=== PATIENT | female | born 1970 | race Caucasian/White ===

== ENCOUNTER 2018-05-10 18:44 | Emergency (ER) | payer SELFPAY | END 2018-05-10 23:00 | disposition left against medical advice (07) | LOC: DL.ED 18:44 | DX: Z53.21 Procedure and treatment not carried out due to patient leaving prior to being seen by health care provider (principal) ==

== ENCOUNTER 2018-08-25 07:45 | Emergency (ER) | payer BC ==
--- NOTE | 2018-08-25 09:28 | CT ---
Clinical history: 47-year-old 239 pound female complaining of "numbness". Scan technique: Volume acquisition of data emergency unenhanced CT scan of the head and brain obtained while the patient was lying supine on the Siemens multi slice scanner [place], [place]. All data archived in the PACS system for storage, reformatting axial/sagittal/coronal planes and study. No previous exams immediately available for comparison. Interpretation: 1. Symmetric atrophy convexity of both cerebral hemispheres out of proportion to patient's age. Underlying mirror-image normal ventricular system. No hydrocephalus. Physiologic midline pineal and symmetric choroid plexus calcifications. 2. No supratentorial or posterior fossa mass lesion. 3. Cerebellum and brainstem unremarkable. 4. Uniformly thick bony calvarium and symmetric clear pneumatization of the paranasal sinuses (dense sclerosis of the mastoids). 5. No focal area of ischemia, territorial infarct, or encephalomalacia. 6. No sign of acute intracerebral/intraventricular/subarachnoid bleed. No extracerebral/intracranial epidural or subdural hematoma. CONCLUSION: Atrophy. Chronic mastoiditis. No intracranial mass, hydrocephalus, infarct or bleed.
[2018-08-25 10:08] LABS: ANION GAP 14.8; CHLORIDE,CL 104 mmol/L (101-111); SODIUM,NA 136 mmol/L (135-145)
[2018-08-25] MEDS ORDERED: HYDROmorphone 1 MG/ML Syringe IVPUSH ONE (10:57)
[2018-08-25] MEDS: Sodium Chloride 0.9% 10 ML Syringe FLUSH PRN ×2 (11:20→13:17)
[2018-08-25] MEDS ORDERED: LORazepam 2 MG/ML Syringe IVPUSH ONE ×2 (13:08→13:12)
[2018-08-25] MEDS ORDERED: methylPREDNISolone Sod Succ 1,000 MG in Sodium Chloride 0.9% 100 ML IV ONE (14:08)
--- NOTE | 2018-08-25 14:22 | EDM.PDOC ---
ED HPI GENERAL MEDICAL PROBLEM - General Chief Complaint: Neuro Symptoms/Deficits Stated Complaint: SIDE OF RT LEG NUMB Time Seen by Provider: 08/25/18 09:33 Source of Information: Reports: Patient History Limitations: Reports: No Limitations - History of Present Illness INITIAL COMMENTS - FREE TEXT/NARRATIVE: PATIENT COMES EMERGENCY dEPARTMENT TODAY WITH COMPLAINTS OF NUMBNESS TINGLING AND BURNING TO HER RIGHT LOWER EXTREMITY. For about the last week the patient has had a burning tingling sensation to her right foot. It is slowly gotten worse over the past week and her leg is moving as it typically does. This morning when she awoke from sleep she had severeburningtingling pain to her right arm and her right leg. Her right leg is much weaker than it has been. She has no headache. No visual disturbances. No chest pain or shortness of breath or difficulty breathing. No fever no chills. No nausea no vomiting. No recent falls or trauma. Lower Leg Pain Score (Numeric/FACES): 9 - Related Data Allergies Allergy/AdvReac Type Severity Reaction Status Date / Time morphine Allergy Itching Verified 08/25/18 11:18 Home Meds: Home Meds Naproxen 500 mg PO ASDIRECTED PRN 08/25/18 [History] Past Medical History Cardiovascular History: Reports: None - Past Surgical History GI Surgical History: Reports: Cholecystectomy Female Surgical History: Reports: Cervical Conization, Tubal Ligation, Other (See Below) Other Female Surgeries/Procedures: Overy removed. Social & Family History - Family History Family Medical History: Noncontributory - Tobacco Use Smoking Status *Q: Never Smoker Second Hand Smoke Exposure: No - Caffeine Use Caffeine Use: Reports: Coffee - Recreational Drug Use Recreational Drug Use: No ED ROS GENERAL - Review of Systems Review Of Systems: ROS reveals no pertinent complaints other than HPI. ED EXAM, NEURO - Physical Exam Exam: See Below Text/Narrative:: she is very tearful and crying. She is able to ambulate although with a noted limp to her right lower extremity. She is constantly moving and rubbing her right lower extremity. General Appearance: Anxious Eye Exam: Bilateral Eye: EOMI, Normal Inspection, PERRL Ears: Normal External Exam, Normal Canal, Normal TMs Nose: Normal Inspection, Normal Mucosa, No Blood Throat/Mouth: Normal Inspection, Normal Lips, Normal Teeth, Normal Gums, Normal Oropharynx, Normal Voice, No Airway Compromise Head Exam: Atraumatic, Normocephalic Neck: Normal Inspection, Supple, Non-Tender Respiratory/Chest: No Respiratory Distress, Lungs Clear, Normal Breath Sounds, No Accessory Muscle Use, Chest Non-Tender Cardiovascular: Normal Peripheral Pulses, Regular Rate, Rhythm GI/Abdominal: Normal Bowel Sounds, Soft, Non-Tender Neurological: Alert, CN II-XII Intact, Normal Reflexes, Oriented x 3, Difficulty Walking, Other (she moves her upper extremities strong and equal to command. There is no pronator drift. No ataxia. She moves her left lower extremity strong with no drift. No ataxia. Normal sensation. Her right lower extremity is somewhat hypersensitive to palpation. She is able to lift it up off the bed but it slowlydrifts down and landed back on the bed. She has some ataxia with the right lower extremity as well.). No: Normal Gait (her right leg does not work as well when she ambulates.) DTR: 2+: Patella (R), Patella (L), Achilles (R), Achilles (L) Back Exam: Normal Inspection, Full Range of Motion Extremities: Normal Range of Motion, Non-Tender, No Pedal Edema, Normal Capillary Refill. No: Normal Inspection (normal other than noted changes to the right lower extremity as per the neuro section. ) Psychiatric: Anxious Skin Exam: Warm, Dry, Intact, Normal Color, No Rash EKG INTERPRETATION EKG Date: 08/25/18 Time: 10:00 Rhythm: NSR [place]: Normal P-Wave: Present QRS: Normal ST-T: Normal QT: Normal Course - Vital Signs Last Recorded V/S: Last Vital Signs Temp 37.1 C 08/25/18 13:01 Pulse 76 08/25/18 13:01 Resp 16 08/25/18 13:01 BP 152/75 H 08/25/18 13:01 Pulse Ox 99 08/25/18 13:01 - Orders/Labs/Meds Labs: Laboratory Tests 08/25/18 08/25/18 08/25/18 Range/Units 09:05 09:42 09:42 WBC 4.0 L (5.0-10.0) 10^3/uL RBC 4.38 (4.2-5.4) 10^6/uL Hgb 13.2 (12.0-16.0) g/dL Hct 39.8 (37.0-47.0) % MCV 90.9 (80-100) fL MCH 30.1 (27.0-34.0) pg MCHC 33.2 (33.0-35.0) g/dL Plt Count 341 (150-450) 10^3/uL Neut % (Auto) 61.3 (42.2-75.2) % Lymph % (Auto) 27.6 (20.5-50.1) % [place] % (Auto) 9.7 H (2-8) % Eos % (Auto) 1.2 (1.0-3.0) % Baso % (Auto) 0.2 (0.0-1.0) % Sodium 136 (135-145) mmol/L Potassium 3.8 (3.6-5.0) mmol/L Chloride 104 (101-111) mmol/L Carbon Dioxide 21.0 (21.0-31.0) mmol/L Anion Gap 14.8 BUN 15 (7-18) mg/dL Creatinine 0.7 (0.6-1.3) mg/dL Est Cr Clr Drug Dosing 99.15 mL/min Estimated GFR (MDRD) > 60 BUN/Creatinine Ratio 21.42 Glucose 108 H (74-105) mg/dL POC Glucose 99 (70-105) mg/dl Lactic Acid (0.5-2.2) mmol/L Calcium 8.4 (8.4-10.2) mg/dl Total Bilirubin 0.6 (0.2-1.0) mg/dL AST 16 (10-42) IU/L ALT 13 (10-60) IU/L Alkaline Phosphatase 68 (42-121) IU/L Troponin I < 0.02 (0.00-0.02) ng/ml Total Protein 7.0 (6.7-8.2) g/dl Albumin 3.7 (3.2-5.5) g/dl Globulin 3.3 Albumin/Globulin Ratio 1.12 08/25/18 Range/Units 09:42 WBC (5.0-10.0) 10^3/uL RBC (4.2-5.4) 10^6/uL Hgb (12.0-16.0) g/dL Hct (37.0-47.0) % MCV (80-100) fL MCH (27.0-34.0) pg MCHC (33.0-35.0) g/dL Plt Count (150-450) 10^3/uL Neut % (Auto) (42.2-75.2) % Lymph % (Auto) (20.5-50.1) % [place] % (Auto) (2-8) % Eos % (Auto) (1.0-3.0) % Baso % (Auto) (0.0-1.0) % Sodium (135-145) mmol/L Potassium (3.6-5.0) mmol/L Chloride (101-111) mmol/L Carbon Dioxide (21.0-31.0) mmol/L Anion Gap BUN (7-18) mg/dL Creatinine (0.6-1.3) mg/dL Est Cr Clr Drug Dosing mL/min Estimated GFR (MDRD) BUN/Creatinine Ratio Glucose (74-105) mg/dL POC Glucose (70-105) mg/dl Lactic Acid 0.7 (0.5-2.2) mmol/L Calcium (8.4-10.2) mg/dl Total Bilirubin (0.2-1.0) mg/dL AST (10-42) IU/L ALT (10-60) IU/L Alkaline Phosphatase (42-121) IU/L Troponin I (0.00-0.02) ng/ml Total Protein (6.7-8.2) g/dl Albumin (3.2-5.5) g/dl Globulin Albumin/Globulin Ratio Meds: Medications Discontinued Medications Generic Name Dose Route Start Last Admin Trade Name Marcio PRN Reason Stop Dose Admin Hydromorphone HCl 0.5 mg 08/25/18 10:57 08/25/18 11:19 Dilaudid IVPUSH 08/25/18 10:58 0.5 mg ONETIME ONE Administration Methylprednisolone Sodium 108 mls @ 100 mls/hr 08/25/18 14:08 08/25/18 14:48 Succinate 1,000 mg/ Sodium IV 08/25/18 15:12 100 mls/hr Chloride ONETIME ONE Administration Lorazepam 0.5 mg 08/25/18 13:08 08/25/18 13:21 Ativan IVPUSH 08/25/18 13:09 Not Given ONETIME ONE Lorazepam 0.5 mg 08/25/18 13:12 08/25/18 13:17 Ativan IVPUSH 08/25/18 13:13 0.5 mg ONETIME ONE Administration Sodium Chloride 10 ml 08/25/18 09:33 08/25/18 13:17 Saline Flush FLUSH 10 ml ASDIRECTED PRN Administration Keep Vein Open - Radiology Interpretation Free Text/Narrative:: CT of the head per radiology. No acute infarct mass or bleed. Atrophy with chronic mastoiditis. MRI per radiology.Question of an acute demyelinization process in the left parietal region. - Re-Assessments/Exams Free Text/Narrative Re-Assessment/Exam: 08/25/18 a stroke was activated on the patient's arrival. CT scan no acute infarct or bleed chronic changes. The patient continues to have the same symptoms pain and is tearful. She was given some Dilaudid with improvement in pain and relaxation. After the finding of the concern for acute demyelinization process on the MRI of the brain I spoke with Dr. Ryan at [facility]. HPI ER Course findings and concers were relayed to him. He would like the patient to receive 1 ,000mg of solu-medrol every day for the next 5 days and see neurology in the clinic the next available appointment. HE does not feel that hospitalization is needed or warranted at this time. I relayed the results of the MRI to the patient. She is much more comfortable after some dilaudid and ativan. I also relayed in the course of action for this acute demyelinization process. The patient does have a son with multiple sclerosis. She is comfortable with the plan of daily Solu-Medrol and close follow-up with neurology anything new or worse over the next couple of days she will be sent to [place] for further evaluation She is comfortable with this plan and her questions are answered. Departure - Departure Time of Disposition: 14:52 Disposition: Home, Self-Care 01 Clinical Impression: Demyelinating changes in brain - Discharge Information Instructions: Weakness, [id number] Referrals: PCP,None [Primary Care Provider] - Forms: ED Department Discharge Additional Instructions: We will help get you an appointment today with a neurologist for next available within the week. Daily infusions of steroids to treat the disease process. Come back tomorrow and daily at 3pm. Tylenol and or Ibuprofen as needed for pain. Drink lots of fluids. Rest as much as possible. Return to the ED if new or worsening symptoms. Follow up with neurology as planned.
== END 2018-08-25 16:20 | disposition home or self-care (01) ==
LOC: DL.ED 07:45
DX: G37.9 Demyelinating disease of central nervous system, unspecified (principal); Z88.5 Allergy status to narcotic agent; Z79.899 Other long term (current) drug therapy
CPT/HCPCS: 36415; 70450; 70551; 80053; 82962; 83605; 84484; 85025; 93005; 96365; 96375; 99285; J1170; J2060; J2930; J7050

== ENCOUNTER 2019-04-11 17:37 | Emergency (ER) | payer BC ==
[2019-04-11] MEDS ORDERED: Acetaminophen/HYDROcodone 325-10 MG Tab PO ONE ×2 (17:38→17:42)
[2019-04-11] MEDS ORDERED: Promethazine 25 MG Tab PO ONE (17:43)
[2019-04-11] MEDS ORDERED: Acetaminophen/HYDROcodone 325-10 MG Tab ONE (18:28)
--- NOTE | 2019-04-11 18:32 | EDM.PDOC ---
Scribed by Candy Belle 04/11/19 1811 for Eduardo Quintanilla MD ED HPI GENERAL MEDICAL PROBLEM - General Chief Complaint: Lower Extremity Injury/Pain Stated Complaint: CALL FOR WALK IN Time Seen by Provider: 04/11/19 17:37 Source of Information: Reports: Patient, RN, RN Notes Reviewed History Limitations: Reports: No Limitations - History of Present Illness INITIAL COMMENTS - FREE TEXT/NARRATIVE: Patient presents to ER by POV with complaint of right knee and ankle pain. She had a ground level fall. Denies any head or neck injury. No other areas of injury. Onset: Today Duration: Getting Worse Location: Reports: Lower Extremity, Right Quality: Reports: Ache Severity: Moderate Improves with: Reports: None Worsens with: Reports: None Associated Symptoms: Reports: No Other Symptoms Right Lower Leg Pain Score (Numeric/FACES): 10 - Related Data Allergies Allergy/AdvReac Type Severity Reaction Status Date / Time morphine Allergy Itching Verified 04/11/19 17:32 Home Meds: Home Meds Naproxen 500 mg PO BID PRN 08/25/18 [History] Calcium Carbonate [Calcium] 600 mg PO BID 08/26/18 [History] Ergocalciferol (Vitamin D2) [Vitamin D2] 2,000 unit PO DAILY 08/26/18 [History] Ondansetron [Zofran ODT] 4 mg PO ASDIRECTED PRN 08/29/18 [History] Pantoprazole [ProTONIX] 40 mg PO ASDIRECTED 08/29/18 [History] Past Medical History Cardiovascular History: Reports: None - Infectious Disease History Infectious Disease History: Reports: Chicken Pox - Past Surgical History HEENT Surgical History: Reports: Eye Surgery GI Surgical History: Reports: Cholecystectomy Female Surgical History: Reports: Cervical Conization, Tubal Ligation, Other (See Below) Other Female Surgeries/Procedures: Overy removed. Social & Family History - Family History Family Medical History: Noncontributory - Caffeine Use Caffeine Use: Reports: Coffee Review of Systems - Review of Systems Review Of Systems: ROS reveals no pertinent complaints other than HPI. ED EXAM, GENERAL - Physical Exam Exam: See Below Exam Limited By: No Limitations General Appearance: Alert, WD/WN, No Apparent Distress Nose: Normal Inspection Throat/Mouth: Normal Inspection, Normal Voice, No Airway Compromise Head: Atraumatic, Normocephalic Neck: Normal Inspection, Non-Tender, Full Range of Motion Respiratory/Chest: No Respiratory Distress Cardiovascular: Regular Rate, Rhythm, Tachycardia GI/Abdominal: Normal Bowel Sounds, Soft, Non-Tender Back Exam: Normal Inspection, Full Range of Motion Extremities: No Pedal Edema, Normal Capillary Refill, Other (generalized tenderness to right knee and right ankle without visible bruising or deformity, skin is intact. Decreased range of motion right knee and right ankle secondary to pain. ). No: Joint Swelling, Arm Pain, Increased Warmth, Mottled, Pallor, Redness Neurological: Alert, Oriented, No Motor/Sensory Deficits Psychiatric: Anxious, Tearful Skin Exam: Warm, Dry, Intact, Normal Color, No Rash ED TRAUMA EXTREMITY PROCEDURES - Splinting Right Lower Extremity Splint Site: Rt posterior long leg with sugartong Pre-Procedure NV Status: Normal Post-Procedure NV Status: Normal Splint Material: Fiberglass Splint Design: Stirrup, Posterior Applied & Form Fitted By: Nurse, Tech Provider Post-Splint Application NV Check: NV Status Normal, Good Position Complications: No Course - Vital Signs Last Recorded V/S: Last Vital Signs Temp 98.4 F 04/11/19 17:38 Pulse 150 H 04/11/19 17:38 Resp 28 H 04/11/19 17:38 BP 142/86 H 04/11/19 17:38 Pulse Ox 96 04/11/19 17:38 - Orders/Labs/Meds Orders: Active Orders 24 hr Category Date Time Status Ankle Min 3V Rt [CR] Urgent Exams 04/11/19 17:42 Ordered Knee 3V Rt [CR] Urgent Exams 04/11/19 17:42 Ordered Tibia Fibula Rt [CR] Urgent Exams 04/11/19 17:52 Ordered Meds: Medications Discontinued Medications Generic Name Dose Route Start Last Admin Trade Name Freq PRN Reason Stop Dose Admin Hydrocodone Bitart/Acetaminophen 1 tab 04/11/19 17:42 04/11/19 17:49 [place] 325-10 Mg PO 04/11/19 17:43 1 tab ONETIME ONE Administration Promethazine HCl 25 mg 04/11/19 17:43 04/11/19 17:49 Phenergan PO 04/11/19 17:44 25 mg ONETIME ONE Administration - Radiology Interpretation Free Text/Narrative:: XR Rt Knee: advance OA changes of Rt knee with no acute fracture, see Rad. report. XR Rt Ankle: distal Rt fibula fracture. XR Rt Tib/Fib: distal Rt fibula fracture. Departure - Departure Time of Disposition: 19:00 Disposition: Home, Self-Care 01 Condition: Good Clinical Impression: Fall from ground level Closed fracture of distal fibula Qualifiers: Encounter type: initial encounter Fracture morphology: other fracture Laterality: right Qualified Code(s): S82.831A - Other fracture of upper and lower end of right fibula, initial encounter for closed fracture Osteoarthritis of right knee Qualifiers: Osteoarthritis type: unspecified Qualified Code(s): M17.11 - Unilateral primary osteoarthritis, right knee - Discharge Information *PRESCRIPTION DRUG MONITORING PROGRAM REVIEWED*: No *COPY OF PRESCRIPTION DRUG MONITORING REPORT IN PATIENT ANDREA: No Instructions: Tibial and Fibular Fractures, Osteoarthritis, Pain Medicine Instructions, [id number], Crutch Use, Adult, [id number], Cast or Splint Care , Adult, [id number] Forms: ED Department Discharge Additional Instructions: Rx: Hydrocodone APAP 10mg/325mg Rest, ice packs, and elevate right foot/leg to reduce pain and swelling. Do not remove splint. Use crutches. No weight bearing on right foot/leg. Call [phone] tomorrow morning to schedule an orthopedic appointment at [facility] in [place]. - My Orders Last 24 Hours: My Active Orders 04/11/19 17:42 Ankle Min 3V Rt [CR] Urgent Knee 3V Rt [CR] Urgent 04/11/19 17:52 Tibia Fibula Rt [CR] Urgent - Assessment/Plan Last 24 Hours: My Active Orders 04/11/19 17:42 Ankle Min 3V Rt [CR] Urgent Knee 3V Rt [CR] Urgent 04/11/19 17:52 Tibia Fibula Rt [CR] Urgent I have read and agree with the documentation that has been completed regarding this visit. By signing this record, I attest that the documentation was completed in my physical presence and is an accurate record of the encounter.
== END 2019-04-11 18:46 | disposition home or self-care (01) ==
LOC: DL.ED 17:37
DX: S82.831A Other fracture of upper and lower end of right fibula, initial encounter for closed fracture (principal); M17.11 Unilateral primary osteoarthritis, right knee; Z88.5 Allergy status to narcotic agent; Z79.899 Other long term (current) drug therapy; Z98.890 Other specified postprocedural states; W19.XXXA Unspecified fall, initial encounter
CPT/HCPCS: 29505; 73590; 73610; 99283; A9270

== ENCOUNTER 2019-09-14 12:10 | Emergency (ER) | payer BC ==
[2019-09-14] MEDS ORDERED: Aspirin 81 MG Tab.Chew PO ONE (12:15)
[2019-09-14] MEDS ORDERED: HYDROmorphone 1 MG/ML Syringe IVPUSH ONE (12:30)
[2019-09-14] MEDS ORDERED: diphenhydrAMINE 50 MG/ML SDV IVPUSH ONE (12:30)
[2019-09-14] MEDS ORDERED: Lidocaine 5% Oint 35.44 GM Tube TOP ONE (12:30)
[2019-09-14] MEDS: Sodium Chloride 0.9% 10 ML Syringe FLUSH PRN ×2 (12:36→12:49)
--- NOTE | 2019-09-14 12:42 | EDM.PDOC ---
ED HPI GENERAL MEDICAL PROBLEM - General Chief Complaint: Neuro Symptoms/Deficits Stated Complaint: DIZZY, CHEST PAIN/LEFT BREAST PAIN Time Seen by Provider: 09/14/19 12:25 Source of Information: Reports: Patient, Old Records, RN, RN Notes Reviewed History Limitations: Reports: No Limitations - History of Present Illness INITIAL COMMENTS - FREE TEXT/NARRATIVE: Pt presents to ER with c/o severe left breast/chest wall pain. 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 Pt states she became anxious due to the pain, and then became lightheaded and felt faint, but did not lose consciousness. Pt denies radiating pain, shortness of breath, edema, palpitations, fever, chills, N/V, or wheezing. She reports that her left breast has been very painful over the past few weeks. She had breast CA treated with radiation in the last year. She has an appointment in [place] tomorrow to have the pain evaluated by her specialist. Duration: Constant, Getting Worse, Recurring Location: Reports: Chest Quality: Reports: Ache, Same as Previous Episode Severity: Severe Improves with: Reports: None Worsens with: Reports: None Associated Symptoms: Reports: No Other Symptoms Left Breast Pain Score (Numeric/FACES): 10 - Related Data Allergies Allergy/AdvReac Type Severity Reaction Status Date / Time morphine Allergy Itching Verified 09/14/19 12:30 tramadol Allergy Other Verified 09/14/19 12:30 Home Meds: Home Meds Naproxen 500 mg PO BID PRN 08/25/18 [History] Calcium Carbonate [Calcium] 600 mg PO BID 08/26/18 [History] Ergocalciferol (Vitamin D2) [Vitamin D2] 2,000 unit PO DAILY 08/26/18 [History] Ondansetron [Zofran ODT] 4 mg PO ASDIRECTED PRN 08/29/18 [History] Pantoprazole [ProTONIX] 40 mg PO ASDIRECTED 08/29/18 [History] Past Medical History Cardiovascular History: Reports: None Respiratory History: Reports: None Gastrointestinal History: Reports: GERD Genitourinary History: Reports: None 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 Musculoskeletal Surgical History: Reports: Other (See Below) Other Musculoskeletal Surgeries/Procedures:: LEFT knee Social & Family History - Family History Family Medical History: Noncontributory - Tobacco Use Smoking Status *Q: Former Smoker Years of Tobacco use: 20 Packs/Tins Daily: 0.5 Used Tobacco, but Quit: No Second Hand Smoke Exposure: No - Caffeine Use Caffeine Use: Reports: Coffee, Soda - Recreational Drug Use Recreational Drug Use: No - Living Situation & Occupation Living situation: Reports: , with Family Occupation: Employed ED ROS GENERAL - Review of Systems Review Of Systems: Comprehensive ROS is negative, except as noted in HPI. ED EXAM, GENERAL - Physical Exam Exam: See Below Exam Limited By: No Limitations General Appearance: Alert, WD/WN, No Apparent Distress, Anxious Eye Exam: Bilateral Eye: Normal Inspection Nose: Normal Inspection Throat/Mouth: Normal Inspection, Normal Lips, Normal Voice, No Airway Compromise Head: Atraumatic, Normocephalic Neck: Normal Inspection Respiratory/Chest: No Respiratory Distress, Lungs Clear, Normal Breath Sounds, No Accessory Muscle Use, Other (Left breast with generalized tenderness, no erythema, increased warmth, visible swelling, or rash.) Cardiovascular: Normal Peripheral Pulses, Regular Rate, Rhythm, No Edema, Tachycardia GI/Abdominal: Normal Bowel Sounds, Soft, Non-Tender, No Organomegaly, No Distention, No Abnormal Bruit, No Mass Back Exam: Normal Inspection Extremities: Normal Inspection Neurological: Alert, Oriented, CN II-XII Intact, Normal Cognition, No Motor/ Sensory Deficits Psychiatric: Anxious Skin Exam: Warm, Dry, Intact, Normal Color, No Rash EKG INTERPRETATION EKG Date: 09/14/19 Time: 12:14 Rhythm: Other (Sinus Tach) Rate (Beats/Min): 100 [place]: Normal P-Wave: Present QRS: Normal ST-T: Normal QT: Normal Comparison: NA - No Prior EKG Course - Vital Signs Last Recorded V/S: Last Vital Signs Temp 99.3 F 09/14/19 12:21 Pulse 101 H 09/14/19 12:21 Resp 16 09/14/19 12:21 BP 148/75 H 09/14/19 12:21 Pulse Ox 99 09/14/19 12:21 - Orders/Labs/Meds Orders: Active Orders 24 hr Category Date Time Status EKG 12 Lead [EKG Documentation Completion] [RC] STAT Care 09/14/19 12:15 Active Peripheral IV Care [RC] . DIRECTED Care 09/14/19 12:15 Active Sodium Chloride 0.9% [Saline Flush] Med 09/14/19 12:15 Active 10 ml FLUSH ASDIRECTED PRN Peripheral IV Insertion Adult [OM.PC] Stat Oth 09/14/19 12:15 Ordered Medication Orders Sodium Chloride (Saline Flush) 10 ml FLUSH ASDIRECTED PRN PRN Reason: Keep Vein Open Last Admin: 09/14/19 12:49 Dose: 10 ml Admin: 09/14/19 12:36 Dose: 10 ml Labs: Laboratory Tests 09/14/19 09/14/19 Range/Units 12:23 12:23 WBC 7.0 (5.0-10.0) 10^3/uL RBC 4.41 (4.2-5.4) 10^6/uL Hgb 13.1 (12.0-16.0) g/dL Hct 38.9 (37.0-47.0) % MCV 88.2 (80-100) fL MCH 29.7 (27.0-34.0) pg MCHC 33.7 (33.0-35.0) g/dL Plt Count 383 (150-450) 10^3/uL Neut % (Auto) 70.1 (42.2-75.2) % Lymph % (Auto) 16.7 L (20.5-50.1) % [place] % (Auto) 9.4 H (2-8) % Eos % (Auto) 3.7 H (1.0-3.0) % Baso % (Auto) 0.1 (0.0-1.0) % Sodium 135 (135-145) mmol/L Potassium 3.8 (3.6-5.0) mmol/L Chloride 102 (101-111) mmol/L Carbon Dioxide 23.0 (21.0-31.0) mmol/L Anion Gap 13.8 BUN 22 H (7-18) mg/dL Creatinine 0.7 (0.6-1.3) mg/dL Est Cr Clr Drug Dosing 99.83 mL/min Estimated GFR (MDRD) > 60 BUN/Creatinine Ratio 31.42 Glucose 95 (74-105) mg/dL Calcium 9.3 (8.4-10.2) mg/dl Total Bilirubin 0.4 (0.2-1.0) mg/dL AST 16 (10-42) IU/L ALT 14 (10-60) IU/L Alkaline Phosphatase 69 (42-121) IU/L Troponin I < 0.02 (0.00-0.02) ng/ml Total Protein 7.3 (6.7-8.2) g/dl Albumin 3.9 (3.2-5.5) g/dl Globulin 3.4 Albumin/Globulin Ratio 1.15 Meds: Medications Generic Name Dose Route Start Last Admin Trade Name Freq PRN Reason Stop Dose Admin Sodium Chloride 10 ml 09/14/19 12:15 09/14/19 12:49 Saline Flush FLUSH 10 ml ASDIRECTED PRN Administration Keep Vein Open Discontinued Medications Generic Name Dose Route Start Last Admin Trade Name Freq PRN Reason Stop Dose Admin Aspirin 324 mg 09/14/19 12:15 09/14/19 12:40 Aspirin PO 09/14/19 12:16 324 mg ONETIME ONE Administration Diphenhydramine HCl 25 mg 09/14/19 12:30 09/14/19 12:45 Benadryl IVPUSH 09/14/19 12:31 25 mg ONETIME ONE Administration Hydromorphone HCl 1 mg 09/14/19 12:30 09/14/19 12:48 Dilaudid IVPUSH 09/14/19 12:31 1 mg ONETIME ONE Administration Lidocaine HCl 15 gm 09/14/19 12:30 09/14/19 12:45 Lidocaine 5% TOP 09/14/19 12:31 1 applic ONETIME ONE Administration - Radiology Interpretation Free Text/Narrative:: [facility] [place] [facility] Final Radiology Report Call: [phone] assistance Online chat: [email or web address] Name: ALLISON MONAE Age: 48Years F Date: 09/14/2019 SSN: -- : [id number] Study: XR CHEST 1 VIEW FRONTAL Requesting Physician: VÍCTOR GUERRERO Images: 1 Addl Studies: Provided Clinical History: chest pain Contrast: Contrast Medium: Contrast Amount: Contrast Method: CONFIDENTIALITY STATEMENT This report is intended only for use by the referring physician, and only in accordance with law. If you received this in error, call [phone]. Page 1 of 1 PROCEDURE INFORMATION: Exam: XR Chest, 1 View Exam date and time: 09/14/2019 12:26 PM Age: 48 years old Clinical indication: Chest pain; Type not specified TECHNIQUE: Imaging protocol: XR of the chest Views: 1 view. COMPARISON: No relevant prior studies available. FINDINGS: Lungs: Unremarkable. No consolidation. Pleural space: Unremarkable. No pleural effusion. No pneumothorax. Heart/Mediastinum: Unremarkable. No cardiomegaly. Bones/joints: Unremarkable. IMPRESSION: No acute findings. Thank you for allowing us to participate in the care of your patient. Dictated and Authenticated by: Jesús Méndez MD 09/14/2019 1:02 PM Central Time ([place] & [place]) Departure - Departure Time of Disposition: 13:13 Disposition: Home, Self-Care 01 Condition: Fair Clinical Impression: Breast pain, left - Discharge Information *PRESCRIPTION DRUG MONITORING PROGRAM REVIEWED*: No *COPY OF PRESCRIPTION DRUG MONITORING REPORT IN PATIENT ANDREA: No Instructions: Breast Tenderness, Nonspecific Chest Pain, [id number] Forms: ED Department Discharge Additional Instructions: Rx: [place] (Hydrocodone) 5mg/325mg *Do not drive while taking this medication. Lidocaine 5% Ointment: apply to area of pain every 2 to 4 hours. Follow up in clinic tomorrow as scheduled. Sepsis Event Note - Evaluation Sepsis Screening Result: No Definite Risk - Focused Exam Vital Signs: Vital Signs Temp Pulse Resp BP Pulse Ox 09/14/19 12:21 99.3 F 101 H 16 148/75 H 99 Date Exam was Performed: 09/14/19 Time Exam was Performed: 13:20 - My Orders Last 24 Hours: My Active Orders 09/14/19 12:15 EKG 12 Lead [EKG Documentation Completion] [RC] STAT Peripheral IV Care [RC] . DIRECTED Sodium Chloride 0.9% [Saline Flush] 10 ml FLUSH ASDIRECTED PRN Peripheral IV Insertion Adult [OM.PC] Stat - Assessment/Plan Last 24 Hours: My Active Orders 09/14/19 12:15 EKG 12 Lead [EKG Documentation Completion] [RC] STAT Peripheral IV Care [RC] . DIRECTED Sodium Chloride 0.9% [Saline Flush] 10 ml FLUSH ASDIRECTED PRN Peripheral IV Insertion Adult [OM.PC] Stat
[2019-09-14 12:50] LABS: ANION GAP 13.8; CHLORIDE,CL 102 mmol/L (101-111); SODIUM,NA 135 mmol/L (135-145)
== END 2019-09-14 13:30 | disposition home or self-care (01) ==
LOC: DL.ED 12:10
DX: N64.4 Mastodynia (principal); R07.89 Other chest pain; K21.9 Gastro-esophageal reflux disease without esophagitis; Z88.5 Allergy status to narcotic agent; Z88.6 Allergy status to analgesic agent; Z79.899 Other long term (current) drug therapy; Z90.49 Acquired absence of other specified parts of digestive tract
CPT/HCPCS: 36415; 71045; 80053; 84484; 85025; 93005; 96374; 96375; 99285; A9270; J1170; J1200

== ENCOUNTER 2019-12-05 22:01 | Emergency (ER) | payer BC ==
[2019-12-05 23:39] LABS: ANION GAP 10.5 mEq/L (7-13); CHLORIDE,CL 103 mmol/L (98-107); SODIUM,NA 140 mmol/L (136-145)
--- NOTE | 2019-12-05 23:51 | EDM.PDOC ---
ED HPI GENERAL MEDICAL PROBLEM - General Chief Complaint: Cardiovascular Problem Stated Complaint: VERY FAST HEARTBEAT Time Seen by Provider: 12/05/19 22:20 Source of Information: Reports: Patient History Limitations: Reports: No Limitations - History of Present Illness INITIAL COMMENTS - FREE TEXT/NARRATIVE: ED with c/o of itching after taking pain medication for knee, Total knee replacement done on 11/28. Initially on percocet and switched to hydrocodone today and tonight felt like heart racing. No chest pain or SOB. Has tried benadryl for itching but has not taken any today. Hx "allergy to morphine with itching and someone told her that percocet was type of morphine. Right Knee Pain Score (Numeric/FACES): 10 - Related Data Allergies Allergy/AdvReac Type Severity Reaction Status Date / Time morphine Allergy Itching Verified 12/05/19 22:10 tramadol Allergy Other Verified 12/05/19 22:10 Home Meds: Home Meds Naproxen 500 mg PO BID PRN 08/25/18 [History] Calcium Carbonate [Calcium] 600 mg PO BID 08/26/18 [History] Ergocalciferol (Vitamin D2) [Vitamin D2] 2,000 unit PO DAILY 08/26/18 [History] Ondansetron [Zofran ODT] 4 mg PO ASDIRECTED PRN 08/29/18 [History] Pantoprazole [ProTONIX] 40 mg PO ASDIRECTED 08/29/18 [History] Past Medical History Cardiovascular History: Reports: None Respiratory History: Reports: None Gastrointestinal History: Reports: GERD Genitourinary History: Reports: None 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 History: Reports: None Psychiatric History: Reports: None Endocrine/Metabolic History: Reports: None Hematologic History: Reports: None Immunologic History: Reports: None Oncologic (Cancer) History: Reports: Breast Dermatologic History: Reports: None - Infectious Disease History Infectious Disease History: Reports: Chicken Pox - Past Surgical History HEENT Surgical History: Reports: Eye Surgery Musculoskeletal Surgical History: Reports: Knee Replacement, Other (See Below) Other Musculoskeletal Surgeries/Procedures:: Bilateral knee Social & Family History - Family History Family Medical History: Noncontributory - Tobacco Use Smoking Status *Q: Never Smoker Second Hand Smoke Exposure: No - Caffeine Use Caffeine Use: Reports: None - Recreational Drug Use Recreational Drug Use: No - Living Situation & Occupation Living situation: Reports: , with Family Occupation: Employed ED ROS GENERAL - Review of Systems Review Of Systems: Comprehensive ROS is negative, except as noted in HPI. ED EXAM, GENERAL - Physical Exam Exam: See Below Exam Limited By: No Limitations General Appearance: Alert, Anxious Eye Exam: Bilateral Eye: EOMI Ears: Normal External Exam, Normal TMs Nose: Normal Inspection Throat/Mouth: Normal Inspection Head: Atraumatic, Normocephalic Neck: Normal Inspection Respiratory/Chest: No Respiratory Distress, Lungs Clear, Normal Breath Sounds Cardiovascular: Normal Peripheral Pulses, Regular Rate, Rhythm GI/Abdominal: Normal Bowel Sounds Extremities: Limited Range of Motion (Swelling left knee, bruising, Surgical dressing intact. No redness. ). No: Normal Range of Motion Neurological: Alert, Oriented Skin Exam: Warm, Dry. No: Rash (no hives ) Course - Vital Signs Last Recorded V/S: Last Vital Signs Temp 98.7 F 12/05/19 22:17 Pulse 97 12/05/19 22:41 Resp 24 H 12/05/19 22:17 BP 133/81 12/05/19 22:17 Pulse Ox 97 12/05/19 22:17 - Orders/Labs/Meds Orders: Active Orders 24 hr Category Date Time Status EKG Documentation Completion [RC] URGENT Care 12/05/19 22:52 Active Labs: Laboratory Tests 12/05/19 12/05/19 Range/Units 23:08 23:08 WBC 6.9 (5.0-10.0) 10^3/uL RBC 4.07 L (4.2-5.4) 10^6/uL Hgb 12.1 (12.0-16.0) g/dL Hct 36.8 L (37.0-47.0) % MCV 90.4 (80-100) fL MCH 29.7 (27.0-34.0) pg MCHC 32.9 L (33.0-35.0) g/dL Plt Count 509 H D (150-450) 10^3/uL Neut % (Auto) 65.4 (42.2-75.2) % Lymph % (Auto) 14.6 L (20.5-50.1) % [place] % (Auto) 9.1 H (2-8) % Eos % (Auto) 10.6 H (1.0-3.0) % Baso % (Auto) 0.3 (0.0-1.0) % Sodium 140 (136-145) mmol/L Potassium 3.5 (3.5-5.1) mmol/L Chloride 103 (98-107) mmol/L Carbon Dioxide 30 (21-32) mmol/L Anion Gap 10.5 (7-13) mEq/L BUN 10 (7-18) mg/dL Creatinine 0.99 (0.55-1.02) mg/dL Est Cr Clr Drug Dosing 68.58 mL/min Estimated GFR (MDRD) 59 BUN/Creatinine Ratio 10.1 (No establ ref range) Glucose 100 H (74-99) mg/dL Calcium 9.1 (8.5-10.1) mg/dL Total Bilirubin 0.3 (0.2-1.0) mg/dL AST 10 L (15-37) U/L ALT 26 (14-59) U/L Alkaline Phosphatase 121 H (46-116) U/L Troponin I < 0.017 (0.000-0.056) ng/mL Total Protein 7.5 (6.4-8.2) g/dL Albumin 2.8 L (3.4-5.0) g/dL Globulin 4.7 Albumin/Globulin Ratio 0.60 Departure - Departure Time of Disposition: 23:47 Disposition: Home, Self-Care 01 Condition: Good Clinical Impression: Status post knee surgery Adverse drug effect Qualifiers: Encounter type: initial encounter Qualified Code(s): T50.905A - Adverse effect of unspecified drugs, medicaments and biological substances, initial encounter Instructions: Total Knee Replacement, Care After, [id number] Referrals: PCP,None [Ordering Only Provider] - Forms: ED Department Discharge Additional Instructions: Benadryl 25mg every 6 hours as needed for itching follow up with ortho clinic in am pain medications as directed continue to ice knee urgent follow up if difficulty swallowing or shortness of breath Sepsis Event Note - Evaluation Sepsis Screening Result: No Definite Risk - Focused Exam Vital Signs: Vital Signs Temp Pulse Resp BP Pulse Ox 12/05/19 22:41 97 12/05/19 22:17 98.7 F 120 H 24 H 133/81 97 Date Exam was Performed: 12/06/19 Time Exam was Performed: 04:07 - My Orders Last 24 Hours: My Active Orders 12/05/19 22:52 EKG Documentation Completion [RC] URGENT - Assessment/Plan Last 24 Hours: My Active Orders 12/05/19 22:52 EKG Documentation Completion [RC] URGENT
== END 2019-12-05 23:56 | disposition home or self-care (01) ==
LOC: DL.ED 22:01
DX: R00.2 Palpitations (principal); K21.9 Gastro-esophageal reflux disease without esophagitis; Z88.5 Allergy status to narcotic agent; T40.2X5A Adverse effect of other opioids, initial encounter
CPT/HCPCS: 36415; 80053; 84484; 85025; 93005; 99283-25

== ENCOUNTER 2020-03-29 09:41 | Emergency (ER) | payer BC ==
--- NOTE | 2020-03-29 10:08 | EDM.PDOC ---
ED HPI GENERAL MEDICAL PROBLEM - General Chief Complaint: General Stated Complaint: HANDS TINGLING FEELING DIFFRENT FAST HEART RATE Time Seen by Provider: 03/29/20 10:07 Source of Information: Reports: Patient, RN, RN Notes Reviewed History Limitations: Reports: No Limitations - History of Present Illness INITIAL COMMENTS - FREE TEXT/NARRATIVE: Patient presents to ER with complaint of numbness and tingling to the left side of her face, left arm, left side of her body, left leg. Patient states she has been very stressed at work. States she had a headache on the right side of her head yesterday and has a slight headache today. States today she felt she had blurred vision and felt as though she was going to pass out. Patient states she has had some anxiety in the past. States she feels there is something wrong with her. States she felt that her blood pressure was high and her heart rate was high today. Patient is crying and anxious upon exam. Patient denies any health problems, denies any meds on a daily basis. Onset: Today, Sudden - Related Data Allergies Allergy/AdvReac Type Severity Reaction Status Date / Time morphine Allergy Itching Verified 03/29/20 09:53 tramadol Allergy Other Verified 03/29/20 09:53 Home Meds: Home Meds Naproxen 500 mg PO BID PRN 08/25/18 [History] Calcium Carbonate [Calcium] 600 mg PO DAILY 08/26/18 [History] Ergocalciferol (Vitamin D2) [Vitamin D2] 2,000 unit PO DAILY 08/26/18 [History] Ondansetron [Zofran ODT] 4 mg PO ASDIRECTED PRN 08/29/18 [History] Pantoprazole [ProTONIX] 40 mg PO ASDIRECTED 08/29/18 [History] Cyanocobalamin (Vitamin B-12) [Vitamin B-12] 2,000 mcg PO DAILY 03/29/20 [History] Past Medical History HEENT History: Reports: None Cardiovascular History: Reports: None Respiratory History: Reports: None Gastrointestinal History: Reports: GERD Genitourinary History: Reports: None 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 History: Reports: None Psychiatric History: Reports: None Endocrine/Metabolic History: Reports: None Hematologic History: Reports: None Immunologic History: Reports: None Oncologic (Cancer) History: Reports: Breast Dermatologic History: Reports: None - Infectious Disease History Infectious Disease History: Reports: Chicken Pox - Past Surgical History HEENT Surgical History: Reports: Eye Surgery Musculoskeletal Surgical History: Reports: Knee Replacement, Other (See Below) Other Musculoskeletal Surgeries/Procedures:: Bilateral knee Social & Family History - Family History Family Medical History: Noncontributory - Tobacco Use Smoking Status *Q: Never Smoker Second Hand Smoke Exposure: No - Caffeine Use Caffeine Use: Reports: Coffee, Soda - Recreational Drug Use Recreational Drug Use: No - Living Situation & Occupation Living situation: Reports: , with Family Occupation: Employed ED ROS GENERAL - Review of Systems Review Of Systems: Comprehensive ROS is negative, except as noted in HPI. ED EXAM, GENERAL - Physical Exam Exam: See Below Exam Limited By: No Limitations General Appearance: Alert, WD/WN, Anxious, Mild Distress Eye Exam: Bilateral Eye: EOMI, Normal Inspection, PERRL (3 brisk) Ears: Normal External Exam, Hearing Grossly Normal Nose: Normal Inspection Throat/Mouth: Normal Inspection, Normal Voice, No Airway Compromise Head: Atraumatic, Normocephalic Neck: Normal Inspection, Supple, Non-Tender, Full Range of Motion Respiratory/Chest: No Respiratory Distress, Lungs Clear, Normal Breath Sounds, No Accessory Muscle Use, Chest Non-Tender Cardiovascular: Normal Peripheral Pulses, Regular Rate, Rhythm, No Edema, No Gallop, No JVD, No Murmur, No Rub Peripheral Pulses: 2+: Radial (L), Radial (R) GI/Abdominal: Normal Bowel Sounds, Soft, Non-Tender (Female) Exam: Deferred Rectal (Female) Exam: Deferred Back Exam: Normal Inspection, Full Range of Motion, NT Extremities: Normal Inspection, Normal Range of Motion, Non-Tender, No Pedal Edema, Normal Capillary Refill, Leg Pain (Right knee to foot, chronic) Neurological: Alert, Oriented, CN II-XII Intact, Normal Cognition, Normal Gait, Normal Reflexes, Other (weaker left hand grasp than right, feeling of numbness to left side of face, left arm, left leg) Psychiatric: Anxious, Tearful Skin Exam: Warm, Dry, Intact, Normal Color, No Rash Lymphatic: No Adenopathy Course - Vital Signs Last Recorded V/S: Last Vital Signs Temp 97.7 F 03/29/20 09:47 Pulse 80 08/21/20 11:01 Resp 16 03/29/20 11:01 BP 142/69 H 03/29/20 11:01 Pulse Ox 100 03/29/20 11:01 - Orders/Labs/Meds Orders: Active Orders 24 hr Category Date Time Status EKG Documentation Completion [RC] STAT Care 03/29/20 10:17 Active Labs: Laboratory Tests 03/29/20 03/29/20 Range/Units 10:26 10:26 WBC 4.7 L (5.0-10.0) 10^3/uL RBC 4.39 (4.2-5.4) 10^6/uL Hgb 12.9 (12.0-16.0) g/dL Hct 38.7 (37.0-47.0) % MCV 88.2 (80-100) fL MCH 29.4 (27.0-34.0) pg MCHC 33.3 (33.0-35.0) g/dL Plt Count 396 D (150-450) 10^3/uL Neut % (Auto) 66.6 (42.2-75.2) % Lymph % (Auto) 21.5 (20.5-50.1) % [place] % (Auto) 8.7 H (2-8) % Eos % (Auto) 2.8 (1.0-3.0) % Baso % (Auto) 0.4 (0.0-1.0) % Sodium 139 (136-145) mmol/L Potassium 4.1 (3.5-5.1) mmol/L Chloride 103 (98-107) mmol/L Carbon Dioxide 26 (21-32) mmol/L Anion Gap 14.1 H (7-13) mEq/L BUN 14 (7-18) mg/dL Creatinine 0.88 (0.55-1.02) mg/dL Est Cr Clr Drug Dosing 77.15 mL/min Estimated GFR (MDRD) > 60 BUN/Creatinine Ratio 15.9 (No establ ref range) Glucose 104 H (74-99) mg/dL Calcium 8.7 (8.5-10.1) mg/dL Total Bilirubin 0.3 (0.2-1.0) mg/dL AST 12 L (15-37) U/L ALT 16 (14-59) U/L Alkaline Phosphatase 90 (46-116) U/L Troponin I < 0.017 (0.000-0.056) ng/mL Total Protein 7.7 (6.4-8.2) g/dL Albumin 3.5 (3.4-5.0) g/dL Globulin 4.2 Albumin/Globulin Ratio 0.8 Meds: Medications Discontinued Medications Generic Name Dose Route Start Last Admin Trade Name Marcio PRN Reason Stop Dose Admin Lorazepam 0.5 mg 03/29/20 11:40 Ativan IVPUSH 03/29/20 11:41 ONETIME ONE Lorazepam 1 mg 03/29/20 12:04 03/29/20 12:08 Ativan PO 03/29/20 12:05 1 mg ONETIME ONE Administration Meclizine HCl 25 mg 03/29/20 12:53 03/29/20 12:59 Antivert PO 03/29/20 12:54 25 mg ONETIME ONE Administration - Radiology Interpretation Free Text/Narrative:: Head CT without contrast: Atrophy. Abnormal demyelination, infarct? Left parietal lobe, unchanged. No new evidence of intracranial metastasis, stroke, or bleed. See radiologist report - Re-Assessments/Exams Free Text/Narrative Re-Assessment/Exam: 03/29/20 13:50 Patient resting in her room. States numbness and tingling is improving on the left side. Patient states she is ready to go home and rest. Departure - Departure Time of Disposition: 13:51 Disposition: Home, Self-Care 01 Condition: Fair Clinical Impression: Anxiety - Discharge Information *PRESCRIPTION DRUG MONITORING PROGRAM REVIEWED*: No *COPY OF PRESCRIPTION DRUG MONITORING REPORT IN PATIENT ANDREA: No Instructions: Living With Anxiety Forms: ED Department Discharge Additional Instructions: Follow-up with your primary care provider Return to ER with any worsening of symptoms Rest May use Tylenol and/or ibuprofen as directed for pain Sepsis Event Note (ED) - Evaluation Sepsis Screening Result: No Definite Risk - Focused Exam Vital Signs: Vital Signs Temp Pulse Resp BP Pulse Ox 03/29/20 11:01 80 16 142/69 H 100 03/29/20 10:03 92 16 136/84 100 03/29/20 09:47 97.7 F 102 H 16 154/89 H 100 - My Orders Last 24 Hours: My Active Orders 03/29/20 10:17 EKG Documentation Completion [RC] STAT - Assessment/Plan Last 24 Hours: My Active Orders 03/29/20 10:17 EKG Documentation Completion [RC] STAT
[2020-03-29 10:56] LABS: ANION GAP 14.1 mEq/L (7-13); CHLORIDE,CL 103 mmol/L (98-107); SODIUM,NA 139 mmol/L (136-145)
[2020-03-29] MEDS ORDERED: LORazepam 2 MG/ML SDV IVPUSH ONE (11:40)
[2020-03-29] MEDS ORDERED: LORazepam 0.5 MG Tab PO ONE (12:04)
--- NOTE | 2020-03-29 12:49 | CT ---
EXAMINATION: Head wo Cont SEX: Female AGE: 49 years CLINICAL HISTORY: 49-year-old 246 pound female complaining of dizziness and left-sided numbness. Significant past history mastectomy for breast cancer and abnormal MRI exam of the head 25 August 2018 that revealed "focal abnormal white matter signal, left parietal lobe". Scan technique: Volume acquisition of data emergency unenhanced CT scan of the head and brain obtained with patient lying supine on the Siemens multi slice scanner [place], [place]. All data archived in the PACS system for storage, reformatting axial/sagittal/coronal planes and study (bone/brain windows). Interpretation: ABNORMAL, but generally unchanged compared to previous CT head, 25 August 2018. 1. Chronic severe atrophy frontal and parietal lobes, bilaterally. 2. Reproducible asymmetric subtle focal area of decreased brain attenuation left parietal lobe convexity that was present, in retrospect, on [address] scan head (confirmed with MRI August 2018). 3. No new supratentorial/posterior fossa mass lesion or other intracranial ischemic infarcts. 4. Uniformly thick bony calvarium. No pathologic skeletal lesion, skull fracture or epidural/subdural hematoma. No underlying brain contusion. 5. No sign of acute intracerebral, intraventricular or subarachnoid bleed. Physiologic pineal and choroid plexus calcifications. CONCLUSION: Atrophy. Abnormal demyelination (infarct?) Left parietal lobe, unchanged. No new evidence of intracranial metastasis, stroke or bleed.
[2020-03-29] MEDS ORDERED: Meclizine 12.5 MG Tab PO ONE (12:53)
== END 2020-03-29 14:01 | disposition home or self-care (01) ==
LOC: DL.ED 09:41
DX: F41.9 Anxiety disorder, unspecified (principal); R20.2 Paresthesia of skin; Z88.5 Allergy status to narcotic agent; Z79.899 Other long term (current) drug therapy; K21.9 Gastro-esophageal reflux disease without esophagitis
CPT/HCPCS: 36415; 70450; 80053; 84484; 85025; 93005; 99284; A9270

== ENCOUNTER 2020-06-17 12:17 | Emergency (ER) | payer BC ==
[2020-06-17 13:12] LABS: ANION GAP 11.3 mEq/L (7-13); CHLORIDE,CL 103 mmol/L (98-107); SODIUM,NA 137 mmol/L (136-145)
[2020-06-17] MEDS ORDERED: Promethazine 25 MG/ML SDV IM ONE (13:28)
[2020-06-17] MEDS ORDERED: Ketorolac 30 MG/ML SDV IM ONE (13:31)
--- NOTE | 2020-06-17 13:44 | EDM.PDOC ---
ED HPI GENERAL MEDICAL PROBLEM - General Chief Complaint: Syncope Stated Complaint: UNKNOWN REASON Time Seen by Provider: 06/17/20 13:10 Source of Information: Reports: Patient, Old Records, RN, RN Notes Reviewed History Limitations: Reports: No Limitations - History of Present Illness INITIAL COMMENTS - FREE TEXT/NARRATIVE: Patient presents to the ED for complaints of dizziness, numbness, and headache. 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 She reports she sat down to eat and felt extremely dizzy and noted paraesthesia "all over." Additionally, she reports a significant headache behind her right eye. She states she was started on Propranolol for chronic headache two months ago. While this has helped alleviate most of her headaches, she reports experiencing headache most days this past week. She denies fever, shaking chills, chest pain, palpitations, nausea, vomiting, and diarrhea. The patient reports she was treated in this facility in March 2020 for similar symptoms and was work-up at that time was benign for cardiac or neurologic processes and was treated for acute anxiety. She states she feels like she may be anxious right now, but cannot be sure. Patient denies tobacco, alcohol, or recreational drug use. - Related Data Allergies Allergy/AdvReac Type Severity Reaction Status Date / Time morphine Allergy Itching Verified 06/17/20 12:28 tramadol Allergy Other Verified 06/17/20 12:28 Home Meds: Home Meds Naproxen 500 mg PO BID PRN 08/25/18 [History] Calcium Carbonate [Calcium] 600 mg PO DAILY 08/26/18 [History] Ergocalciferol (Vitamin D2) [Vitamin D2] 2,000 unit PO DAILY 08/26/18 [History] Ondansetron [Zofran ODT] 4 mg PO ASDIRECTED PRN 08/29/18 [History] Pantoprazole [ProTONIX] 40 mg PO ASDIRECTED 08/29/18 [History] Cyanocobalamin (Vitamin B-12) [Vitamin B-12] 2,000 mcg PO DAILY 03/29/20 [History] Propranolol HCl [Propranolol] 60 mg PO DAILY 06/17/20 [History] Past Medical History HEENT History: Reports: None Cardiovascular History: Reports: None Respiratory History: Reports: None Gastrointestinal History: Reports: GERD Genitourinary History: Reports: None 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: Neurological History: Reports: None Psychiatric History: Reports: None Endocrine/Metabolic History: Reports: None Hematologic History: Reports: None Immunologic History: Reports: None Oncologic (Cancer) History: Reports: Breast Dermatologic History: Reports: None - Infectious Disease History Infectious Disease History: Reports: Chicken Pox - Past Surgical History HEENT Surgical History: Reports: Eye Surgery Musculoskeletal Surgical History: Reports: Knee Replacement, Other (See Below) Other Musculoskeletal Surgeries/Procedures:: Bilateral knee Social & Family History - Family History Family Medical History: Noncontributory - Tobacco Use Tobacco Use Status *Q: Never Tobacco User Second Hand Smoke Exposure: No - Caffeine Use Caffeine Use: Reports: Coffee, Soda - Recreational Drug Use Recreational Drug Use: No - Living Situation & Occupation Living situation: Reports: , with Family Occupation: Employed ED ROS GENERAL - Review of Systems Review Of Systems: Comprehensive ROS is negative, except as noted in HPI. ED EXAM, NEURO - Physical Exam Exam: See Below Exam Limited By: No Limitations General Appearance: Alert, WD/WN, No Apparent Distress Eye Exam: Bilateral Eye: EOMI, Normal Inspection, PERRL Ears: Normal External Exam, Normal Canal, Hearing Grossly Normal, Normal TMs Throat/Mouth: Normal Inspection, Normal Voice, No Airway Compromise Head Exam: Atraumatic, Normocephalic Neck: Normal Inspection, Supple, Non-Tender, Full Range of Motion Respiratory/Chest: No Respiratory Distress, Lungs Clear, Normal Breath Sounds, No Accessory Muscle Use, Chest Non-Tender Cardiovascular: Normal Peripheral Pulses, Regular Rate, Rhythm, No Edema, No Gallop, No Murmur, No Rub GI/Abdominal: Normal Bowel Sounds, Soft, Non-Tender, No Distention, No Mass, Pelvis Stable Neurological: Alert, Normal Mood/Affect, Normal Dorsiflexion, CN II-XII Intact, Normal Plantar Flexion, Normal Gait, No Motor/Sensory Deficits, Oriented x 3 Back Exam: Normal Inspection, Full Range of Motion Extremities: Normal Inspection, Normal Range of Motion, Non-Tender, No Pedal Edema, Normal Capillary Refill Psychiatric: Normal Affect, Anxious Skin Exam: Warm, Dry, Intact, Normal Color, No Rash. No: Ecchymosis, Erythema, Mottled, Pallor, Petechiae #1 Interpretation EKG Date: 06/17/20 Time: 13:33 Rhythm: NSR Rate (Beats/Min): 70 [place]: Normal P-Wave: Present QRS: Normal ST-T: Normal QT: Normal Comparison: No Change (NSR; No evidence of acute ischemia.) Course - Vital Signs Last Recorded V/S: Last Vital Signs Temp 97.2 F 06/17/20 12:24 Pulse 76 06/17/20 12:24 Resp 16 06/17/20 12:24 BP 141/73 H 06/17/20 12:24 Pulse Ox 100 06/17/20 12:24 - Orders/Labs/Meds Orders: Active Orders 24 hr Category Date Time Status EKG Documentation Completion [RC] STAT Care 06/17/20 12:30 Active Labs: Laboratory Tests 06/17/20 06/17/20 06/17/20 Range/Units 12:43 12:46 12:46 WBC 5.7 (5.0-10.0) 10^3/uL RBC 4.51 (4.2-5.4) 10^6/uL Hgb 13.3 (12.0-16.0) g/dL Hct 40.3 (37.0-47.0) % MCV 89.4 (80-100) fL MCH 29.5 (27.0-34.0) pg MCHC 33.0 (33.0-35.0) g/dL Plt Count 398 (150-450) 10^3/uL Neut % (Auto) 61.9 (42.2-75.2) % Lymph % (Auto) 23.0 (20.5-50.1) % [place] % (Auto) 10.8 H (2-8) % Eos % (Auto) 3.9 H (1.0-3.0) % Baso % (Auto) 0.4 (0.0-1.0) % Sodium 137 (136-145) mmol/L Potassium 4.3 (3.5-5.1) mmol/L Chloride 103 (98-107) mmol/L Carbon Dioxide 27 (21-32) mmol/L Anion Gap 11.3 (7-13) mEq/L BUN 14 (7-18) mg/dL Creatinine 0.86 (0.55-1.02) mg/dL Est Cr Clr Drug Dosing 80.37 mL/min Estimated GFR (MDRD) > 60 BUN/Creatinine Ratio 16.3 (No establ ref range) Glucose 112 H (74-99) mg/dL Calcium 9.1 (8.5-10.1) mg/dL Phosphorus 2.6 (2.6-4.7) mg/dL Magnesium 2.0 (1.8-2.4) mg/dL Total Bilirubin 0.4 (0.2-1.0) mg/dL AST 10 L (15-37) U/L ALT 14 (14-59) U/L Alkaline Phosphatase 101 (46-116) U/L Troponin I < 0.017 (0.000-0.056) ng/mL Total Protein 7.5 (6.4-8.2) g/dL Albumin 3.2 L (3.4-5.0) g/dL Globulin 4.3 Albumin/Globulin Ratio 0.74 TSH, Ultra Sensitive 2.04 (0.36-3.74) uIU/mL SARS CoV-2 RNA Rapid FREDY (NEGATIVE) 06/17/20 Range/Units 12:47 WBC (5.0-10.0) 10^3/uL RBC (4.2-5.4) 10^6/uL Hgb (12.0-16.0) g/dL Hct (37.0-47.0) % MCV (80-100) fL MCH (27.0-34.0) pg MCHC (33.0-35.0) g/dL Plt Count (150-450) 10^3/uL Neut % (Auto) (42.2-75.2) % Lymph % (Auto) (20.5-50.1) % [place] % (Auto) (2-8) % Eos % (Auto) (1.0-3.0) % Baso % (Auto) (0.0-1.0) % Sodium (136-145) mmol/L Potassium (3.5-5.1) mmol/L Chloride (98-107) mmol/L Carbon Dioxide (21-32) mmol/L Anion Gap (7-13) mEq/L BUN (7-18) mg/dL Creatinine (0.55-1.02) mg/dL Est Cr Clr Drug Dosing mL/min Estimated GFR (MDRD) BUN/Creatinine Ratio (No establ ref range) Glucose (74-99) mg/dL Calcium (8.5-10.1) mg/dL Phosphorus (2.6-4.7) mg/dL Magnesium (1.8-2.4) mg/dL Total Bilirubin (0.2-1.0) mg/dL AST (15-37) U/L ALT (14-59) U/L Alkaline Phosphatase (46-116) U/L Troponin I (0.000-0.056) ng/mL Total Protein (6.4-8.2) g/dL Albumin (3.4-5.0) g/dL Globulin Albumin/Globulin Ratio TSH, Ultra Sensitive (0.36-3.74) uIU/mL SARS CoV-2 RNA Rapid FREDY Negative (NEGATIVE) Meds: Medications Discontinued Medications Generic Name Dose Route Start Last Admin Trade Name Freq PRN Reason Stop Dose Admin Ketorolac Tromethamine 30 mg 06/17/20 13:31 06/17/20 13:47 Toradol IM 06/17/20 13:32 30 mg ONETIME ONE Administration Promethazine HCl 50 mg 06/17/20 13:28 06/17/20 13:44 Phenergan IM 06/17/20 13:29 50 mg ONETIME ONE Administration - Re-Assessments/Exams Free Text/Narrative Re-Assessment/Exam: 06/17/20 Cardiac work up negative. CT scan in March negative for neuro process. Patient attests to an MRI in May which was a negative for acute processes, as well. Will treat acute migraine with Phenergan 50mg IM x1 and Ketorolac 30mg IM x1. TSH 2.04. Patient counseled to follow up with primary care provider regarding better headache management and possible long-term anxiety management. 06/17/20 1420 Patient states improvement in headache following Phenergan and Toradol injections. Patient counseled to follow up with primary care provider regarding better headache management and possible long-term anxiety management. She verbalized understanding and agreement with the plan of care. Departure - Departure Time of Disposition: 14:27 Disposition: Home, Self-Care 01 Condition: Good Clinical Impression: Anxiety Migraine headache without aura Qualifiers: Status migrainosus presence: without status migrainosus Intractability: not intractable Qualified Code(s): G43.009 - Migraine without aura, not intractable, without status migrainosus - Discharge Information *PRESCRIPTION DRUG MONITORING PROGRAM REVIEWED*: Not Applicable *COPY OF PRESCRIPTION DRUG MONITORING REPORT IN PATIENT ANDREA: Not Applicable Forms: ED Department Discharge Additional Instructions: Follow up with Elina (your primary care provider) regarding today's visit in about 5-7 days. Discuss management of chronic headache and the possibility of long-term treatment for anxiety. Take the rest of the day off from work to rest. Drink a lot of water to stay hydrated. Do not drive today as you received medications in the emergency room that are not appropriate to be in control of a motor vehicle. Sepsis Event Note (ED) - Evaluation Sepsis Screening Result: No Definite Risk - Focused Exam Vital Signs: Vital Signs Temp Pulse Resp BP Pulse Ox 06/17/20 12:24 97.2 F 76 16 141/73 H 100 - My Orders Last 24 Hours: My Active Orders 06/17/20 12:30 EKG Documentation Completion [RC] STAT - Assessment/Plan Last 24 Hours: My Active Orders 06/17/20 12:30 EKG Documentation Completion [RC] STAT
== END 2020-06-17 14:46 | disposition home or self-care (01) ==
LOC: DL.ED 12:17
DX: G43.009 Migraine without aura, not intractable, without status migrainosus (principal); F41.9 Anxiety disorder, unspecified; K21.9 Gastro-esophageal reflux disease without esophagitis; Z20.828 Contact with and (suspected) exposure to other viral communicable diseases; Z79.899 Other long term (current) drug therapy; Z88.6 Allergy status to analgesic agent
CPT/HCPCS: 36415; 80053; 83735; 84100; 84443; 84484; 85025; 87635; 93005; 96372; 96374; 99284; J1885; J2550; U0002

== ENCOUNTER 2020-12-16 13:03 | Emergency (ER) | payer BC ==
--- NOTE | 2020-12-16 13:10 | EDM.PDOC ---
ED HPI GENERAL MEDICAL PROBLEM - General Chief Complaint: Headache Stated Complaint: HEADACHE Time Seen by Provider: 12/16/20 13:06 Source of Information: Reports: Patient, RN, RN Notes Reviewed History Limitations: Reports: No Limitations - History of Present Illness INITIAL COMMENTS - FREE TEXT/NARRATIVE: Pt presents to ER with c/o severe right sided headache that began at 0800HRS this morning. Pt reports Hx of migraines, but states this is the worst headache she has ever had. Admits to photophobia, nausea, and a pounding throbbing pain in the right frontal area. Pt has been on Propranolol for one month, and claims this is the first headache that she has had since starting the medicine. Onset: Gradual Onset Date: 12/16/20 Onset Time: 08:00 Duration: Constant Location: Reports: Head Quality: Reports: Ache, Pressure, Throbbing Severity: Severe Improves with: Reports: None Right Head Pain Score (Numeric/FACES): 8 - Related Data Allergies Allergy/AdvReac Type Severity Reaction Status Date / Time morphine Allergy Itching Verified 06/17/20 12:28 tramadol Allergy Other Verified 06/17/20 12:28 Home Meds: Home Meds Naproxen 500 mg PO BID PRN 08/25/18 [History] Calcium Carbonate [Calcium] 600 mg PO DAILY 08/26/18 [History] Ergocalciferol (Vitamin D2) [Vitamin D2] 2,000 unit PO DAILY 08/26/18 [History] Ondansetron [Zofran ODT] 4 mg PO ASDIRECTED PRN 08/29/18 [History] Pantoprazole [ProTONIX] 40 mg PO ASDIRECTED 08/29/18 [History] Cyanocobalamin (Vitamin B-12) [Vitamin B-12] 2,000 mcg PO DAILY 03/29/20 [History] Propranolol HCl [Propranolol] 60 mg PO DAILY 06/17/20 [History] Past Medical History HEENT History: Reports: None Cardiovascular History: Reports: None Respiratory History: Reports: None Gastrointestinal History: Reports: GERD Genitourinary History: Reports: None 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: Neurological History: Reports: Migraines Psychiatric History: Reports: Anxiety Endocrine/Metabolic History: Reports: None Hematologic History: Reports: None Immunologic History: Reports: None Oncologic (Cancer) History: Reports: Breast Dermatologic History: Reports: None - Infectious Disease History Infectious Disease History: Reports: Chicken Pox - Past Surgical History HEENT Surgical History: Reports: Eye Surgery Musculoskeletal Surgical History: Reports: Knee Replacement, Other (See Below) Other Musculoskeletal Surgeries/Procedures:: Bilateral knee Social & Family History - Family History Family Medical History: No Pertinent Family History - Caffeine Use Caffeine Use: Reports: Coffee, Soda - Living Situation & Occupation Living situation: Reports: , with Family Occupation: Employed ED ROS GENERAL - Review of Systems Review Of Systems: Comprehensive ROS is negative, except as noted in HPI. - Physical Exam Exam: See Below Exam Limited By: No Limitations General Appearance: Alert, WD/WN, No Apparent Distress, Anxious Eye Exam: Bilateral Eye: EOMI, Normal Inspection, PERRL Ears: Normal External Exam, Normal Canal, Hearing Grossly Normal, Normal TMs Nose: Normal Inspection, Normal Mucosa, No Blood Throat/Mouth: Normal Inspection, Normal Lips, Normal Teeth, Normal Gums, Normal Oropharynx, Normal Voice, No Airway Compromise Head Exam: Atraumatic, Normocephalic Neck: Normal Inspection, Supple, Non-Tender, Full Range of Motion Respiratory/Chest: No Respiratory Distress, Lungs Clear, Normal Breath Sounds, No Accessory Muscle Use, Chest Non-Tender Cardiovascular: Normal Peripheral Pulses, Regular Rate, Rhythm, No Edema GI/Abdominal: Normal Bowel Sounds, Soft, Non-Tender Neuro Exam (Abbreviated): Alert, Oriented, CN II-XII Intact, Normal Cognition, Normal Gait, No Motor/Sensory Deficits Extremities: Normal Inspection Psychiatric: Anxious Skin Exam: Warm, Dry, Intact, Normal Color, No Rash Course - Vital Signs Last Recorded V/S: Last Vital Signs Temp 96.7 F L 12/16/20 13:12 Pulse 94 12/16/20 13:12 Resp 14 12/16/20 13:12 BP 131/83 12/16/20 13:12 Pulse Ox 100 12/16/20 13:12 - Orders/Labs/Meds Orders: Active Orders 24 hr Category Date Time Status Peripheral IV Care [RC] . DIRECTED Care 12/16/20 13:16 Active Sodium Chloride 0.9% [Saline Flush] Med 12/16/20 13:16 Active 10 ml FLUSH ASDIRECTED PRN Peripheral IV Insertion Adult [OM.PC] Stat Oth 12/16/20 13:16 Ordered Medication Orders Sodium Chloride (Sodium Chloride 0.9% 10 Ml Syringe) 10 ml FLUSH ASDIRECTED PRN PRN Reason: Keep Vein Open Meds: Medications Generic Name Dose Route Start Last Admin Trade Name Freq PRN Reason Stop Dose Admin Sodium Chloride 10 ml 12/16/20 13:16 Sodium Chloride 0.9% 10 Ml Syringe FLUSH ASDIRECTED PRN Keep Vein Open Discontinued Medications Generic Name Dose Route Start Last Admin Trade Name Freq PRN Reason Stop Dose Admin Diphenhydramine HCl 25 mg 12/16/20 13:16 12/16/20 13:42 Diphenhydramine 50 Mg/Ml Sdv IVPUSH 12/16/20 13:17 25 mg ONETIME ONE Administration Sodium Chloride 1,000 mls @ 999 mls/hr 12/16/20 13:17 12/16/20 13:43 Normal Saline IV 12/16/20 14:17 999 mls/hr .BOLUS ONE Administration Lorazepam 1 mg 12/16/20 13:17 12/16/20 13:42 Lorazepam 2 Mg/Ml Sdv IVPUSH 12/16/20 13:18 1 mg ONETIME ONE Administration Metoclopramide HCl 10 mg 12/16/20 13:16 12/16/20 13:42 Metoclopramide 10 Mg/2 Ml Sdv IVPUSH 12/16/20 13:17 10 mg ONETIME ONE Administration - Re-Assessments/Exams Free Text/Narrative Re-Assessment/Exam: 12/16/20 14:28 On reassessment the pt reports the nausea has resolved, and the headache is improved to "mild". CT report reviewed with pt. Plan to d/c home. Departure - Departure Time of Disposition: 14:29 Disposition: Home, Self-Care 01 Clinical Impression: Migraine headache Qualifiers: Migraine type: without aura Status migrainosus presence: without status migr ainosus Intractability: not intractable Qualified Code(s): G43.009 - Migraine without aura, not intractable, without status migrainosus - Discharge Information *PRESCRIPTION DRUG MONITORING PROGRAM REVIEWED*: Not Applicable *COPY OF PRESCRIPTION DRUG MONITORING REPORT IN PATIENT ANDREA: Not Applicable Instructions: Migraine Headache Forms: ED Department Discharge Additional Instructions: Rx: Reglan (Metoclopramide) 10mg Rx: Benadryl 25mg Follow up in clinic within the next week. Ask your doctor to review the CT Head report from today's ER visit. Sepsis Event Note (ED) - Focused Exam Vital Signs: Vital Signs Temp Pulse Resp BP Pulse Ox 12/16/20 13:12 96.7 F L 94 14 131/83 100 - My Orders Last 24 Hours: My Active Orders 12/16/20 13:16 Peripheral IV Care [RC] . DIRECTED Sodium Chloride 0.9% [Saline Flush] 10 ml FLUSH ASDIRECTED PRN Peripheral IV Insertion Adult [OM.PC] Stat - Assessment/Plan Last 24 Hours: My Active Orders 12/16/20 13:16 Peripheral IV Care [RC] . DIRECTED Sodium Chloride 0.9% [Saline Flush] 10 ml FLUSH ASDIRECTED PRN Peripheral IV Insertion Adult [OM.PC] Stat
[2020-12-16] MEDS ORDERED: diphenhydrAMINE 50 MG/ML SDV IVPUSH ONE (13:16)
[2020-12-16] MEDS ORDERED: Metoclopramide 10 MG/2 ML SDV IVPUSH ONE (13:16)
[2020-12-16] MEDS ORDERED: Sodium Chloride 0.9% 10 ML Syringe FLUSH PRN (13:16)
[2020-12-16] MEDS ORDERED: Sodium Chloride 0.9% 1,000 ML IV ONE (13:17)
[2020-12-16] MEDS ORDERED: LORazepam 2 MG/ML SDV IVPUSH ONE (13:17)
--- NOTE | 2020-12-16 14:25 | CT ---
EXAMINATION: Head wo Cont SEX: Female AGE: 50 years CLINICAL HISTORY: 50-year-old female complaining of Rt frontal headache (" worst CM of life"). No known trauma. Scan technique: Volume acquisition of data unenhanced CT scan of the head and brain obtained with the patient lying supine on the Siemens multislice scanner [place], [place]. All data archived in the PACS system for storage, reformatting axial/sagittal/coronal planes and study (bone/brain windows). Interpretation: 1. *Severe but symmetric atrophy over the parietal convexity, bilaterally (appearance suggestive of bilateral subdural hygromas however appearance unchanged since [address] exam head). Suggest unenhanced MRI helpful. 2. No sign of supratentorial or posterior fossa mass lesion. 3. Mirror-image normal ventricular system. No hydrocephalus. No midline shifts. Physiologic midline pineal and symmetric choroid plexus calcifications. No pathologic intracranial calcifications. 4. Uniformly thick bony calvarium. Symmetric clear pneumatization of the paranasal sinuses (densely sclerotic mastoid sinus on the left and hypoplastic right mastoid sinuses). 5. Normal orbits and optic globes. TMJs unremarkable. 6. No sign of acute intracranial/extracerebral epidural or subdural hematoma. 7. No evidence of acute intracerebral, ventricular or subarachnoid bleed. 8. Cerebellum and brainstem unremarkable. CONCLUSION: Chronic atrophy parietal lobes both cerebral hemispheres. Significance? No sign of intracranial mass, hydrocephalus or bleed.
== END 2020-12-16 14:53 | disposition home or self-care (01) ==
LOC: DL.ED 13:03
DX: G43.009 Migraine without aura, not intractable, without status migrainosus (principal); Z88.5 Allergy status to narcotic agent; Z88.6 Allergy status to analgesic agent
CPT/HCPCS: 70450; 96374; 96375; 99283; 99283-25; J1200; J2060; J2765; J7030

== ENCOUNTER 2023-03-23 17:09 | Emergency (ER) | payer BC, MEDICAID ==
[2023-03-23] MEDS ORDERED: Sodium Chloride 0.9% 10 ML Syringe FLUSH PRN (18:02)
[2023-03-23] MEDS ORDERED: Ondansetron 4 MG/2 ML SDV IVPUSH ONE (18:02)
[2023-03-23 18:11] LABS: BASOPHILS PERCENT AUTO 0.1 % (0.0-1.0); EOSINOPHILS PERCENT AUTO 2.3 % (1.0-3.0); HEMATOCRIT 46.8 % (37.0-47.0); HEMOGLOBIN 15.6 g/dL (12.0-16.0); LYMPHOCYTES PERCENT AUTO 21.4 % (20.5-50.1); MEAN CORPUSCULAR HEMOGLOBIN 30.4 pg (27.0-34.0); MEAN CORPUSCULAR HGB CONC 33.3 g/dL (33.0-35.0); MEAN CORPUSCULAR VOLUME 91.2 fL (80-100); MONOCYTES PERCENT AUTO 8.4 % (2-8); NEUTROPHILS PERCENT AUTO 67.8 % (42.2-75.2); PLATELET COUNT,PLT 460 10^3/uL (150-450); RED BLOOD CELL COUNT 5.13 10^6/uL (4.2-5.4); WHITE BLOOD CELL COUNT,WBC 7.3 10^3/uL (5.0-10.0)
[2023-03-23 18:33] LABS: A/G RATIO 0.8; ALANINE AMINOTRANSFERASE,ALT 13 U/L (14-59); ALBUMIN 3.7 g/dL (3.4-5.0); ALKALINE PHOSPHATASE 107 U/L (46-116); AMYLASE 44 U/L (25-115); ASPARTATE AMNIOTRANSFERASE,AST 10 U/L (15-37); BILIRUBIN TOTAL 0.4 mg/dL (0.2-1.0); BLOOD UREA NITROGEN,BUN 10 mg/dL (7-18); BUN/CREATININE RATIO 10.2 (No establ ref range); C-REACTIVE PROTEIN 2.2 mg/dL (0.0-0.9); CALCIUM 9.3 mg/dL (8.5-10.1); CARBON DIOXIDE,CO2 29 mmol/L (21-32); CHLORIDE,CL 103 mmol/L (98-107); CREATININE 0.98 mg/dL (0.55-1.02); EST CRCL DRUG DOSING (CG) 66.97 mL/min; GLUCOSE RANDOM 98 mg/dL (70-99); LIPASE 45 U/L (73-393); PROTEIN TOTAL,TP 8.1 g/dL (6.4-8.2); SODIUM,NA 142 mmol/L (136-145)
[2023-03-23 18:34] LABS: ESTIMATED GFR 69 mL/min (>=60)
[2023-03-23 18:36] LABS: INR 0.8 (0.9-1.2); LACTIC ACID 0.9 mmol/L (0.4-2.0); PROTHROMBIN TIME 8.8 SEC (9.0-12.0); PTT,PARTIAL THROMBOPLSTIN TIME 25.9 SEC (22.0-34.0)
[2023-03-23] MEDS ORDERED: fentaNYL 100 MCG/2 ML SDV IVPUSH ONE (18:53)
[2023-03-23] MEDS ORDERED: Pantoprazole 40 MG Vial IVPUSH ONE (19:35)
[2023-03-23 19:48] LABS: APPEARANCE,URINE CLEAR (CLEAR); BILIRUBIN,URINE NEGATIVE (NEGATIVE); COLOR,URINE YELLOW (YELLOW); GLUCOSE,URINE NEGATIVE (NEGATIVE); KETONES,URINE NEGATIVE (NEGATIVE); LEUKOCYTE ESTERASE,URINE NEGATIVE (NEGATIVE); NITRITE,URINE NEGATIVE (NEGATIVE); OCCULT BLOOD,URINE NEGATIVE (NEGATIVE); PROTEIN,URINE NEGATIVE (NEGATIVE); UROBILINOGEN,URINE 0.2 mg/dL (0.2-1.0)
== END 2023-03-23 20:01 | disposition home or self-care (01) ==
LOC: DL.ED 17:09
DX: R10.13 Epigastric pain (principal); K21.9 Gastro-esophageal reflux disease without esophagitis; Z88.5 Allergy status to narcotic agent; Z88.8 Allergy status to other drugs, medicaments and biological substances; Z79.899 Other long term (current) drug therapy; Z86.16 Personal history of COVID-19
CPT/HCPCS: 36415; 80053; 81003; 82150; 83605; 83690; 84145; 85025; 85610; 85730; 86140; 96374; 96375; 99283; 99284; C9113; J2405; J3010; J3490

== ENCOUNTER 2023-03-25 13:14 | Emergency (ER) | payer MEDICAID ==
[2023-03-25 15:02] LABS: BASOPHILS PERCENT AUTO 0.2 % (0.0-1.0); EOSINOPHILS PERCENT AUTO 2.2 % (1.0-3.0); HEMATOCRIT 44.6 % (37.0-47.0); LYMPHOCYTES PERCENT AUTO 19.8 % (20.5-50.1); MEAN CORPUSCULAR HEMOGLOBIN 30.7 pg (27.0-34.0); MEAN CORPUSCULAR HGB CONC 33.6 g/dL (33.0-35.0); MEAN CORPUSCULAR VOLUME 91.2 fL (80-100); MONOCYTES PERCENT AUTO 8.1 % (2-8); NEUTROPHILS PERCENT AUTO 69.7 % (42.2-75.2); PLATELET COUNT,PLT 438 10^3/uL (150-450); RED BLOOD CELL COUNT 4.89 10^6/uL (4.2-5.4)
[2023-03-25 15:11] LABS: APPEARANCE,URINE CLEAR (CLEAR); BILIRUBIN,URINE NEGATIVE (NEGATIVE); COLOR,URINE YELLOW (YELLOW); GLUCOSE,URINE NEGATIVE (NEGATIVE); KETONES,URINE NEGATIVE (NEGATIVE); LEUKOCYTE ESTERASE,URINE NEGATIVE (NEGATIVE); NITRITE,URINE NEGATIVE (NEGATIVE); OCCULT BLOOD,URINE NEGATIVE (NEGATIVE); PH,URINE 5.5 (5.0-9.0); PROTEIN,URINE NEGATIVE (NEGATIVE); UROBILINOGEN,URINE 0.2 mg/dL (0.2-1.0)
[2023-03-25 15:24] LABS: A/G RATIO 0.8; ALBUMIN 3.6 g/dL (3.4-5.0); ANION GAP 12.7 mEq/L (7-13); BILIRUBIN TOTAL 0.5 mg/dL (0.2-1.0); BUN/CREATININE RATIO 11.5 (No establ ref range); CALCIUM 9.3 mg/dL (8.5-10.1); CREATININE 0.96 mg/dL (0.55-1.02); EST CRCL DRUG DOSING (CG) 68.36 mL/min; POTASSIUM,K 3.7 mmol/L (3.5-5.1); PROTEIN TOTAL,TP 7.9 g/dL (6.4-8.2)
[2023-03-25 15:30] LABS: AMPHETAMINES,URINE NEGATIVE (NEGATIVE); BARBITURATES,URINE NEGATIVE (NEGATIVE); BENZODIAZEPINE,URINE NEGATIVE (NEGATIVE); MDMA (ECSTASY), URINE NEGATIVE (NEGATIVE); METHADONE,URINE NEGATIVE (NEGATIVE); METHAMPHETAMINES,URINE NEGATIVE (NEGATIVE); OPIATES,URINE NEGATIVE (NEGATIVE); OXYCODONE,URINE NEGATIVE (NEGATIVE); PHENCYCLIDINE,URINE NEGATIVE (NEGATIVE); TCA,URINE NEGATIVE (NEGATIVE)
== END 2023-03-25 17:08 | disposition home or self-care (01) ==
LOC: DL.ED 13:14
DX: R10.13 Epigastric pain (principal); Z88.6 Allergy status to analgesic agent; Z88.5 Allergy status to narcotic agent; Z79.899 Other long term (current) drug therapy; K21.9 Gastro-esophageal reflux disease without esophagitis; Z86.16 Personal history of COVID-19
CPT/HCPCS: 36415; 76705; 80053; 80305-QW; 81003; 81025; 83690; 85025; 99284